=== PATIENT | female | born 1950 | race Caucasian/White ===

== ENCOUNTER 2017-01-15 08:44 | Inpatient (IN) | payer OTHER ==
[2016-12-23 11:27] VITALS: BMI 36.0
--- NOTE | 2016-12-23 12:13 | PAT Medication Instructions ---
Service Date Dec 23, 2016. Current Home Medication List Amitriptyline Hcl (Elavil), 25 MG PO HS Cephalexin Monohydrate (Keflex), 250 MG PO TID Cholecalciferol (Vitamin D3), 1 CAP PO BID Clonazepam (Klonopin), 1 MG PO TID Cyclobenzaprine Hcl (Flexeril), 10 MG PO TID Dextromethorphan-Guaifenesin (Mucinex Dm), 1 TAB PO Q12H Dicyclomine Hcl (Bentyl), 10 MG PO TID PRN for PRN Fenofibrate (Tricor), 48 MG PO QAM Fentanyl (Duragesic), 25 MCG TOP Q72H Ferrous Sulfate (Kp Ferrous Sulfate), 1 TAB PO BID Fluticasone Propionate (Flonase Nasal [place]), 2 SPRAYS PEDRO DAILY PRN for PRN Fluticasone Propionate (Flovent Hfa), 2 PUFFS INH BID PRN for PRN Glimepiride (Amaryl *), 2 MG PO BID Levothyroxine Sodium (Levothyroxine Sodium), 1 TAB PO QAM Magnesium Oxide (Mag-Ox), 400 MG PO QAM Midodrine Hcl (Midodrine Hcl), 10 MG BID Ondansetron Hcl (Zofran), 4 MG PO PRN PRN for Nausea Oxycodone/Acetaminophen 10MG/325MG (Percocet 10MG/325MG), 1 TAB PO Q8H PRN for Pain Paroxetine (Paxil), 30 MG PO QAM Potassium Ext Rel (Klor-Con), 20 MEQ PO QAM Pregabalin (Lyrica), 75 MG PO BID Ropinirole (Requip), 1 MG PO HS Temazepam (Restoril), 30 MG PO HS PRN for PRN [Combivent Inhaler], 2 PUFFS INH Q4 PRN Medication Instructions For Your Scheduled Surgery -Continue as directed: Fentanyl (Duragesic), 25 MCG TOP Q72H - Hold the following medications the night before surgery: Ropinirole (Requip), 1 MG PO HS - Hold the following medications the morning of surgery: Cholecalciferol (Vitamin D3), 1 CAP PO BID Cyclobenzaprine Hcl (Flexeril), 10 MG PO TID Fenofibrate (Tricor), 48 MG PO QAM Glimepiride (Amaryl *), 2 MG PO BID Ferrous Sulfate (Kp Ferrous Sulfate), 1 TAB PO BID Magnesium Oxide (Mag-Ox), 400 MG PO QAM Potassium Ext Rel (Klor-Con), 20 MEQ PO QAM - Take the following medications the morning of surgery with a sip of water: Clonazepam (Klonopin), 1 MG PO TID Dextromethorphan-Guaifenesin (Mucinex Dm), 1 TAB PO Q12H (if needed) Dicyclomine Hcl (Bentyl), 10 MG PO TID PRN (if needed) Fluticasone Propionate (Flonase Nasal [place]), 2 SPRAYS PEDRO DAILY PRN (if needed ) Fluticasone Propionate (Flovent Hfa), 2 PUFFS INH BID PRN Levothyroxine Sodium (Levothyroxine Sodium), 1 TAB PO QAM Midodrine Hcl (Midodrine Hcl), 10 MG BID Ondansetron Hcl (Zofran), 4 MG PO PRN PRN for Nausea (if needed) [Combivent Inhaler], 2 PUFFS INH Q4 PRN (if needed) Pregabalin (Lyrica), 75 MG PO BID Oxycodone/Acetaminophen 10MG/325MG (Percocet 10MG/325MG), 1 TAB PO Q8H PRN for Pain (if needed up to 4 hours before surgery) - Take the following medications as scheduled the night before surgery: Amitriptyline Hcl (Elavil), 25 MG PO HS Cholecalciferol (Vitamin D3), 1 CAP PO BID Clonazepam (Klonopin), 1 MG PO TID Cyclobenzaprine Hcl (Flexeril), 10 MG PO TID Dicyclomine Hcl (Bentyl), 10 MG PO TID PRN Glimepiride (Amaryl *), 2 MG PO BID Ferrous Sulfate (Kp Ferrous Sulfate), 1 TAB PO BID Midodrine Hcl (Midodrine Hcl), 10 MG BID Ondansetron Hcl (Zofran), 4 MG PO PRN PRN for Nausea (if needed) Paroxetine (Paxil), 30 MG PO QAM [Combivent Inhaler], 2 PUFFS INH Q4 PRN (if needed) Fluticasone Propionate (Flonase Nasal [place]), 2 SPRAYS PEDRO DAILY PRN (if needed ) Fluticasone Propionate (Flovent Hfa), 2 PUFFS INH BID PRN (if needed) Pregabalin (Lyrica), 75 MG PO BID Temazepam (Restoril), 30 MG PO HS PRN Oxycodone/Acetaminophen 10MG/325MG (Percocet 10MG/325MG), 1 TAB PO Q8H PRN for Pain If you have any questions please call us at [phone] or [phone] or [phone]
[2016-12-23 12:45] LABS: BASO % 0.6 %; BASO ABS # 0.03 K/uL (0-0.2); COMPLETE YES; EOS % 6.7 %; HEMATOCRIT 39.5 % (37-47); IG% 0.8 %; LYMPH % 16.3 %; LYMPH ABS # 0.85 K/uL (1.2-3.4); MEAN CORPUSCULAR HEMOGLOBIN 31.4 pg (25-34); MEAN CORPUSCULAR HGB CONC 33.4 g/dl (32-36); MEAN PLATELET VOLUME 9.6 fL (7.4-10.4); MONO % 12.4 %; NEUT % 63.2 %; PLATELET COUNT 228 K/uL (130-400); WHITE BLOOD COUNT 5.23 K/uL (4.8-10.8)
[2016-12-23 12:52] LABS: URINE APPEARANCE CLEAR (CLEAR); URINE BILIRUBIN NEG (NEG); URINE COLOR YELLOW; URINE EPITHELIAL CELL AUTO >30 /lpf (0-5); URINE NITRITE NEG (NEG); URINE PH 5.5 (4.5-7.5); URINE SPECIFIC GRAVITY 1.021 (1.000-1.030); UROBILINOGEN NEG (NEG)
[2016-12-23 12:59] LABS: MANUAL MICROSCOPIC REQUIRED? NO; REVIEW REQ? NO
--- NOTE | 2016-12-23 13:01 | DIAGNOSTIC IMAGING REPORT ---
CHEST PREADMISSION(PA/LAT) CLINICAL HISTORY: Preoperative evaluation. COMPARISON STUDY: Chest radiograph July 22, 2012. FINDINGS: Incidental note is made of cholecystectomy clips. Patient is rotated. No pneumothorax or pleural effusion is present. There is no evidence of pulmonary edema. Appearance of the chest is unchanged. Cardiomediastinal silhouette is normal. IMPRESSION: No acute cardiopulmonary findings. Electronically signed by: Usama Allen M.D. 12/23/2016 1:00 PM Dictated Date/Time: 12/23/2016 12:57 PM
[2016-12-23 14:25] LABS: BUN/CREATININE RATIO 22.2 (10-20); CALCIUM 9.3 mg/dl (8.5-10.1); CREATININE 0.77 mg/dl (0.60-1.20); POTASSIUM 4.4 mmol/L (3.5-5.1)
--- NOTE | 2017-01-14 22:19 | History and Physical ---
History & Physical Date Jan 14, 2017. Chief Complaint Right foot pain History of Present Illness The patient is a 66 year old female with complaints of right foot pain and deformity for multiple years. She has been treated conservatively for a right foot bunion and bunionette deformity as well as a hammertoe. She failed all conservative management and is now being set up for surgical management. Past Medical/Surgical History Medical Problems: (1) Anxiety (2) Chronic obstructive lung disease (3) History of - hypothyroidism (4) Hyperlipidemia (5) Mitral valve prolapse (6) Obesity Allergies Coded Allergies: Topiramate (Verified Allergy, Intermediate, UNKNOWN, 12/23/16) PER MD ORDER Aspirin (Verified Allergy, Unknown, SWELLING LIPS GI UPSET, 12/23/16) Clindamycin (Unverified Allergy, Unknown, HIVES FAST HEART RATE, 12/23/16) Gabapentin (Verified Allergy, Unknown, DISORIENTED, 12/23/16) Haloperidol (Verified Allergy, Unknown, "I GO CRAZY", 12/23/16) Iodinated Diagnostic Agents (Unverified Allergy, Unknown, RASH EVERYWHERE , 12/23/16) Lisinopril (Unverified Allergy, Unknown, HYPOTENSION, 12/23/16) Morphine (Unverified Allergy, Unknown, HYPERACTIVITY, 12/23/16) Nitrofurantoin (Verified Allergy, Unknown, NAUSEA AND VOMITING, 12/23/16) Olanzapine (Verified Allergy, Unknown, HIVES,BECAME DIABETIC FROM IT, 12/23) Penicillins (Verified Allergy, Unknown, has taken Keflex, 09/14/13) Pioglitazone (Unverified Allergy, Unknown, HIVES, 12/23/16) Sertraline (Verified Allergy, Unknown, LIPS SWELLING HIVES,SUICIDAL THOUGHTS, 12/23/16) Simvastatin (Verified Allergy, Unknown, SWELLING, 12/23/16) Sulfa Drugs (Verified Allergy, Unknown, SWELLING, 12/23/16) Tetracycline (Verified Allergy, Unknown, HIVES LIPS SWELLING, 12/23/16) Tiotropium (Unverified Allergy, Unknown, CAN'T USE SPIRIVA DUE TO GLAUCOMA , 12/23/16) Methylprednisolone (Verified Adverse Reaction, Mild, "ELEVATED BSG", 12/23) Home Medications Scheduled Amitriptyline Hcl (Elavil), 25 MG PO HS Cephalexin Monohydrate (Keflex), 250 MG PO TID Cholecalciferol (Vitamin D3), 1 CAP PO BID Clonazepam (Klonopin), 1 MG PO TID Cyclobenzaprine Hcl (Flexeril), 10 MG PO TID Dextromethorphan-Guaifenesin (Mucinex Dm), 1 TAB PO Q12H Fenofibrate (Tricor), 48 MG PO QAM Fentanyl (Duragesic), 25 MCG TOP Q72H Ferrous Sulfate (Kp Ferrous Sulfate), 1 TAB PO BID Glimepiride (Amaryl *), 2 MG PO BID Levothyroxine Sodium (Levothyroxine Sodium), 1 TAB PO QAM Magnesium Oxide (Mag-Ox), 400 MG PO QAM Midodrine Hcl (Midodrine Hcl), 10 MG BID Paroxetine (Paxil), 30 MG PO QAM Potassium Ext Rel (Klor-Con), 20 MEQ PO QAM Pregabalin (Lyrica), 75 MG PO BID Ropinirole (Requip), 1 MG PO HS Scheduled PRN Dicyclomine Hcl (Bentyl), 10 MG PO TID PRN for PRN Fluticasone Propionate (Flonase Nasal [place]), 2 SPRAYS PEDRO DAILY PRN for PRN Fluticasone Propionate (Flovent Hfa), 2 PUFFS INH BID PRN for PRN Ondansetron Hcl (Zofran), 4 MG PO PRN PRN for Nausea Oxycodone/Acetaminophen 10MG/325MG (Percocet 10MG/325MG), 1 TAB PO Q8H PRN for Pain Temazepam (Restoril), 30 MG PO HS PRN for PRN [Combivent Inhaler], 2 PUFFS INH Q4 PRN Physical Examination Skin: warm/dry, no rash Eyes: normal inspection Head: normocephalic, atraumatic Neck: supple, no adenopathy, trachea midline Respiratory/Chest: lungs clear, normal breath sounds, no respiratory distress Cardiovascular: regular rate, rhythm, no murmur Abdomen / GI: normal bowel sounds, non tender Extremities: + pertinent finding (Right foot: hallux valgus deformity with hallux interphalangeus. Bunionette deformity. 2nd hammertoe. Tender to palpation at the 1st MTP and 2nd metatarsal head. Also tender at the 5th MTP joint. ) Neurologic/Psych: no motor/sensory deficits, alert, oriented x 3 Diagnosis Right foot hallux valgus Right foot hallux interphalangeus Right foot bunionette Right foot 2nd hammertoe Right foot metatarsalgia of the 2nd and 3rd metatarsals Plan of Treatment Recommend a right foot Devlin hallux valgus correction with distal soft tissue procedure, Jef osteotomy of the great toe, 2nd and 3rd Christofer osteotomies, 2nd DuVries arthroplasy, and 5th Chevron bunionette correction. All potential risks, benefits, complications, alternatives, and rehab have been discussed and the patient wishes to proceed as indicated. She will be scheduled for 01.15.17.
[~2017-01-15] VITALS: Ht 157.5 cm; Wt 90.3 kg
[2017-01-15] VITALS (7 sets, daily range): BP systolic 109–141; BP diastolic 69–72; PULSE 85–93; TEMP 36.4–36.6; O2SAT 93–98; Ht 157.5 cm; Wt 90.3 kg
[~2017-01-15 08:44] MED LIST: AMR2 PO; AMT50 PO; CHOL2000 PO; CLINDAMYCIN 600 MG/54 ML D5W IV SCH; CLON1TAB3 PO; COMBIVENT INHALER INH; CYCL10TA6 PO; DEXT30TA7 PO; DICY10CA55 PO; FENO48TA9 PO; FENT25DI10 TOP; FERR1TAB13 PO; FLNIN NAE; FLVHFA44 INH; KFL/250 PO; LACTATED RINGER'S 1000ML 1,000 ML IV SCH; LEVO25TA5 PO; LYR50 PO; MAGN400T6 PO; MIDO10TA; ONDA4TAB46 PO; OXYC-106 PO; PARO1TAB27 PO; POTA-327 PO; ROPI1TAB PO; ROPIVACAINE 0.5% 5 MG/ML 30 ML VIAL ONE; TEMA30CA4 PO; [UNRECOGNIZED DRUG - REMARK] SCH
--- NOTE | 2017-01-15 10:02 | History & Physical Bridge Note ---
H&P Re-Evaluation Bridge Note: I have examined the patient, reviewed the History & Physical and in the interval since the performance of the History & Physical I have noted the following changes of clinical significance: No changes noted
[2017-01-15] MEDS ORDERED: MIDAZOLAM HCL 1 MG/ML 2ML VIAL ONE ×2 (11:04→12:04)
[2017-01-15] MEDS ORDERED: FENTANYL CITRATE INJ 50 MCG/1 ML 2 ML VIAL ONE ×2 (11:05→12:30)
[2017-01-15] MEDS ORDERED: CEFAZOLIN IV 2,000 MG/60 ML D5W IV ONE (11:59)
[2017-01-15] MEDS ORDERED: NURSING VERBAL MED ORDER ONE (12:00)
[2017-01-15] MEDS ORDERED: BACITRACIN 50000 UNIT VIAL ONE (12:07)
[2017-01-15] MEDS ORDERED: SOD PHOSPHATE/SOD BIPHOSPHATE ENEMA 132 ML BTL PR PRN (12:45)
[2017-01-15] MEDS ORDERED: ALUMINUM/MAGNESIUM/SIMETH (MAALOX MAX) 30 ML UDC PO PRN (12:45)
[2017-01-15] MEDS ORDERED: ZOLPIDEM TARTRATE 5 MG TAB PO PRN (12:45)
[2017-01-15] MEDS ORDERED: BISACODYL 10 MG SUPP PR PRN (12:45)
[2017-01-15] MEDS ORDERED: FLUTICASONE PROP HFA INH 44 MCG INHALER INH PRN (12:45)
[2017-01-15] MEDS ORDERED: IPRATROPIUM BROMIDE/ALBUTEROL respimat INH INH PRN (12:45)
[2017-01-15] MEDS ORDERED: FLUTICASONE PROPIONATE NA SPR 16 GM BTL NAE PRN (12:45)
[2017-01-15] MEDS ORDERED: NO NSAIDS SCH (12:45)
[2017-01-15] MEDS ORDERED: HYDROmorphone INJ 2 MG/ML SYR/VIAL ONE (12:48)
[2017-01-15] MEDS ORDERED: ONDANSETRON INJ 2 MG/ML 2 ML VIAL IV PRN (14:15)
[2017-01-15] MEDS ORDERED: IV FLUIDS COMPLETED PRN (14:15)
[2017-01-15] MEDS ORDERED: HYDROmorphone INJ 2 MG/ML SYR/VIAL IV PRN (14:15)
[2017-01-15] MEDS ORDERED: EpHEDrine SULFATE INJ 50 MG/ML AMP IV PRN (14:15)
[2017-01-15] MEDS ORDERED: ATROPINE SULFATE 0.1 MG/ML 5ML SYR IV PRN (14:15)
[2017-01-15] MEDS ORDERED: PHENYLEPHRINE 100MCG/ML 5ML SYR IV PRN (14:15)
[2017-01-15] MEDS ORDERED: LIDOCAINE HCL 2% 2 ML VIAL (20MG/ML) ONE (14:28)
[2017-01-15] MEDS ORDERED: DEXAMETHASONE SOD INJ 4 MG/ML VIAL ONE (14:28)
[2017-01-15] MEDS ORDERED: ONDANSETRON INJ 2 MG/ML 2 ML VIAL ONE (14:28)
[2017-01-15] MEDS ORDERED: PROPOFOL IV EMULSION 10 MG/ML 20 ML VIAL IV ONE (14:28)
--- NOTE | 2017-01-15 15:07 | [facility] Post Operative Brief Note ---
Immediate Operative Summary Operative Date Jan 15, 2017. Pre-Operative Diagnosis Right foot hallux valgus, Right foot hallux interphalangeus, Right foot bunionette, Right foot 2nd hammertoe, Right foot metatarsalgia of the 2nd and 3rd metatarsals Post-Operative Diagnosis Right foot hallux valgus, Right foot hallux interphalangeus, Right foot bunionette, Right foot 2nd hammertoe, Right foot metatarsalgia of the 2nd and 3rd metatarsals, Contracture plantar plate 2nd toe Procedure(s) Performed Right Foot Devlin Hallux Valgus Correction; Kaycee Osteotomy; 2nd Christofer and 3rd Christofer Osteotomy; 2nd DuVries Arthroplasty; 5th Chevron Bunionette Correction; 2nd toe Plantar Plate Release Surgeon Dr. Roberson Receiving Operator Surgeon(s) Zac Molina PA-C Estimated Blood Loss 5cc Findings See Dict Specimens NONE per surgeon Drains None Anesthesia GLMA w/ popliteal block Complication(s) None Disposition Recovery Room / PACU
--- NOTE | 2017-01-15 15:51 | DIAGNOSTIC IMAGING REPORT ---
INTRAOPERATIVE RIGHT FOOT 2 VIEWS CLINICAL HISTORY: Right foot hallux valgus deformity COMPARISON STUDY: No previous studies for comparison. FINDINGS: 58 seconds of fluoroscopic time was utilized. 2 intraoperative fluoroscopic spot images are provided for interpretation. There is an apparent osteotomy involving the proximal talus the great toe traversed by a single screw. There is an apparent osteotomy at the base of the first metatarsal traversed by 2 screws. There are single screws involving the necks of the fifth third and second metatarsals. There is orthopedic wire traversing the proximal and distal interphalangeal joints of the second toe as well as the second metatarsal phalangeal joint. IMPRESSION: Intraoperative fluoroscopic spot images demonstrating postsurgical changes as described above Electronically signed by: Marcelino Tang M.D. 01/15/2017 3:50 PM Dictated Date/Time: 01/15/2017 3:48 PM
--- NOTE | 2017-01-15 15:53 | DIAGNOSTIC IMAGING REPORT ---
R FOOT MIN 3 VIEWS ROUTINE CLINICAL HISTORY: post op COMPARISON: None. DISCUSSION: Postsurgical changes are evident. There is evidence of a first metatarsal bunionectomy. There is evidence for an osteotomy at the base the first metatarsal which is traversed by 2 screws. It is conceivable that the screws extend into the medial cuneiform. There is an osteotomy involving the proximal phalanx of the great toe which is traversed by a single screw. There is orthopedic wire traversing the second metatarsal phalangeal joint and enter pharyngeal joints of the second toe. There are single screws at the level of the second third and fifth metatarsal heads. IMPRESSION: Postsurgical changes as described above. Electronically signed by: Marcelino Tang M.D. 01/15/2017 3:51 PM Dictated Date/Time: 01/15/2017 3:50 PM
[2017-01-15] MEDS: HYDROmorphone INJ 1 MG/ML SYR IV PRN (15:57)
--- NOTE | 2017-01-15 16:10 | OPERATIVE REPORT ---
DATE OF OPERATION: 01/15/2017 PREOPERATIVE DIAGNOSES: 1. Right foot hallux valgus deformity. 2. Hallux interphalangeus. 3. Second and third metatarsalgia. 4. Second hammertoe deformity. 5. Fifth bunionette deformity. POSTOPERATIVE DIAGNOSIS: Same as above in addition to a second plantar plate contracture of the PIP joint. PROCEDURES: 1. Right Devlin hallux valgus correction with distal soft tissue procedure. 2. Right Jef osteotomy of the great toe. 3. Second Christofer osteotomy. 4. Third Christofer osteotomy. 5. Second DuVries arthroplasty. 6. Fifth Chevron bunionette correction. 7. Second plantar plate release. SURGEON: Dr. Roberson. UNIFORMER: Reynaldo Molina PA-C who was present for patient positioning, sterile prep and drape, management of retractors and instruments. He was present through the critical portions of the case including wound closure, application of sterile dressing and transport of the patient to recovery. ANESTHESIA: General LMA with popliteal block. SPECIMENS: None. DRAINS: None. COMPLICATIONS: None. BLOOD LOSS: 5 mL. PERTINENT HISTORY: This is a 66-year-old female with chronic progressive and worsening right foot pain and deformity. She attempted and failed conservative measures including anti-inflammatories, use of an assistive device, bracing, use of shoe insert, shoe change and modification, physical therapy, and use of toe spacers, local injections. She had radiographic evidence of severe hallux valgus deformity with severe hallux interphalangeus deformity and severe bunionette deformity. The patient was then scheduled for surgery as indicated. All potential risks, benefits, complications, alternatives, rehab, potential for incomplete relief of symptoms, need for further surgery, DVT, PE, , persistent pain, swelling, scarring, weakness, neurovascular injury, wound complications, hardware failure, nonunion, malunion was discussed with the patient. The patient decided to proceed with the procedure as indicated. OPERATION AND FINDINGS: PROCEDURE: After popliteal block was administered in the preop holding area, the patient was taken to the operative suite, placed supine on the operating room table. After review of the consent and identification of proper operative site the patient was then anesthetized and LMA was placed. A tourniquet was placed high on the right thigh over cast padding; however, was not used during the case. Next, the right lower extremity was then sterilely prepped and draped in usual fashion, elevated and exsanguinated with Esmarch bandage and Esmarch tourniquet was applied over sterile towel at the level of the ankle. First, a 15 blade scalpel incision was made transversely across the second toe PIP joint. This incision was then deepened through subcutaneous tissue. Meticulous hemostasis was achieved with electrocautery. Full thickness skin flaps were developed. Then a full thickness incision was made through the extensor tendon and the joint capsule and a small ellipse of tissue was then excised dorsally. This was then followed by incision of the medial and lateral collateral ligaments of the PIP joint of the second toe. Next, a bone biting rongeur was then used to resect the distal aspect of the proximal phalanx, second toe. After attempting to correct position of the toes there was noted to be a contracture of the plantar plate of the second PIP joint. At this point, this PIP joint contracture was then released with a 15 blade scalpel first and then the tissue was then carefully dissected with a tenotomy scissor until completely released. This then allowed supple realignment of the second toe PIP joint. Next, a 15 blade scalpel was then used to make an incision between the second and third metatarsals. This incision was then deepened through subcutaneous tissue. Meticulous hemostasis was achieved with electrocautery. The second extensor tendon was identified and retracted, and protected followed by dorsal incision in the second metatarsophalangeal joint. This capsular tissue was then elevated both medially and laterally exposing the metatarsal. Next, an oblique osteotomy was made with a sagittal saw. A small parallel cut was made and then the wafer of bone was then resected. The head was then shifted proximally and the dorsal portion of the overhanging osteotomy was then resected with a rongeur. This was irrigated with sterile normal saline and the osteotomy was then stabilized with a 1.5 mm modular handset screw placed under live fluoroscopic assistance. Next, the third extensor tendon was then identified, freed, retracted, and protected with a tenotomy scissor followed by placement of a Weitlaner retractor. Dorsal incision was made over the third metatarsophalangeal joint, capsular tissue was elevated both medially and laterally and the collateral ligaments were then sacrificed with a 15 blade scalpel. This was then followed by creation of an oblique osteotomy of the sagittal saw. The metatarsal head was then shifted proximally and elevated slightly with a secondary cut at the same osteotomy level with the sagittal saw. Next, the dorsal portion of the osteotomy was then resected with a rongeur and the osteotomy was then stabilized with a single 1.5 mm modular handset screw. Next, a 15 blade scalpel was used to make an incision over the medial eminence of the first MTP. This incision was deepened through subcutaneous tissue. Meticulous hemostasis was achieved with electrocautery. The dorsal and plantar sensory cutaneous nerves were identified, freed, retracted, and protected. Next, an ellipse of capsular tissue was then excised with 11 blade scalpel and then an L capsulotomy was made elevating tissue from the medial eminence of the first metatarsal. Next, the medial eminence of the first metatarsal was then resected using a sagittal saw in line with the sagittal sulcus. Next, the 15 blade scalpel was then used to make an incision between the first and second metatarsal heads on the dorsal portion of the foot with a 15 blade scalpel. This incision was then deepened through the subcutaneous tissue and also through Lyndsey's fascia. Next, blunt dissection was performed down to the abductor tendon which was then sharply incised from the lateral aspect of the sesamoid. Next, the sesamoid was then freed with an incision made with a #15 blade scalpel between the sesamoid and the first metatarsal. Next, the lateral capsule was then pie crusted with a 15 blade scalpel, releasing the valgus contracture and a varus force was applied to the first metatarsophalangeal joint to release all resultant contractures. Next, the abductor tendon was then reattached to the capsular tissue of the first metatarsal head with three 2-0 Vicryl sutures. Next, the 15 blade scalpel was used to make an incision over the dorsum of the first metatarsal base. This incision was then deepened through subcutaneous tissue. Meticulous hemostasis was achieved with electrocautery. Full thickness skin flaps were developed. The extensor hallucis longus was then retracted laterally and then a crescentic cut was made in the proximal base of the first metatarsal. The metatarsal metatarsus Primus varus was then reduced and then stabilized with two 4.0 cannulated screws placed under live fluoroscopic assistance. Next, the great toe was held in corrected alignment with regard to varus, valgus and rotation and the medial capsule of the first metatarsophalangeal joint was then closed using interrupted [id number] 2-0 Vicryl sutures. Next, a 15 blade scalpel was then used to make an incision over the lateral aspect of the fifth metatarsal head. This incision was then deepened through subcutaneous tissue. Meticulous hemostasis was achieved with electrocautery. Dorsal and plantar cutaneous nerves were identified, freed, retracted, and protected. An 11 blade scalpel was then used to excise a small ellipse of tissue laterally followed by creation of a L-capsulotomy which was then elevated from the lateral aspect of the fifth metatarsal head. Next, the lateral eminence of the fifth metatarsal head was then resected in line with the sagittal sulcus followed by creation of a Chevron osteotomy with the small sagittal saw. The capital fragment of the fifth metatarsal head was then shifted medially followed by stabilization of the osteotomy with a 2.0 mm modular handset screw. Next, the overhang portion of the osteotomy was then resected with a sagittal saw and all skin incisions were then copiously irrigated with sterile normal saline. This was then followed by closure of the capsule of the fifth metatarsophalangeal joint with the fifth toe held in corrected alignment with regard to valgus, varus and rotation. The capsule was closed using interrupted 2-0 Vicryl sutures. Next, all skin incisions were closed using 4-0 nylon sutures interrupted. Next, a sterile compressive forefoot dressing was applied overwrapped with Coban. The tourniquet was released, the patient was awakened and taken to recovery in stable condition. I attest to the content of the Intraoperative Record and any orders documented therein. Any exception s are noted below.
--- NOTE | 2017-01-15 16:13 | Anesthesiology Progress Note ---
Anesthesia Post Op Note Date & Time Jan 15, 2017 at 16:12 Vital Signs Pain Intensity: 4 Vital Signs Past 12 Hours Date Time Temp Pulse Resp B/P (MAP) Pulse Ox O2 Delivery O2 Flow Rate FiO2 01/15/17 16:05 97 18 123/63 96 Nasal Cannula 4 01/15/17 15:55 100 19 130/67 95 Nasal Cannula 4 01/15/17 15:45 105 13 124/66 96 Oxymask 15 01/15/17 15:35 104 10 112/70 95 Oxymask 15 01/15/17 15:25 108 14 108/73 92 Oxymask 15 01/15/17 15:17 36.7 108 12 115/77 92 Oxymask 10 01/15/17 09:47 141/71 95 Room Air Notes Mental Status: alert / awake / arousable, participated in evaluation Pt Amnestic to Procedure: Yes Nausea / Vomiting: adequately controlled Pain: adequately controlled Airway Patency, RR, SpO2: stable & adequate BP & HR: stable & adequate Hydration State: stable & adequate Anesthetic Complications: no major complications apparent
[2017-01-15] MEDS: DICYCLOMINE HCL 10 MG CAP PO SCH ×2 (17:39→20:57)
[2017-01-15] MEDS: CYCLOBENZAPRINE HCL 10 MG TAB PO SCH ×2 (17:39→20:58)
[2017-01-15] MEDS: CLONAZEPAM 1 MG TAB PO SCH ×2 (17:40→21:05)
[2017-01-15] MEDS ORDERED: FENTANYL 25 MCG/HR TDSY TD SCH (17:45)
[2017-01-15] MEDS ORDERED: GLIMEPIRIDE 2 MG TAB PO SCH (17:45)
[2017-01-15] MEDS: POTASSIUM CHLORIDE INJ 10 MEQ in SODIUM CHLORIDE 0.9% 1000ML 1,000 ML IV SCH (18:29)
[2017-01-15] MEDS: FERROUS SULFATE 325 MG TAB PO SCH (18:30)
[2017-01-15] MEDS: ONDANSETRON INJ 2 MG/ML 2 ML VIAL IV PRN (18:46)
[2017-01-15] MEDS: OXYCODONE/ACETAMINOPHEN 10/325MG TAB PO PRN (18:46)
[2017-01-15] MEDS ORDERED: GLUCOSE 40% GEL 15 GM TUBE PO PRN (19:00)
[2017-01-15] MEDS ORDERED: GLUCAGON FOR INJ 1 MG VIAL SQ PRN (19:00)
[2017-01-15] MEDS ORDERED: DEXTROSE 50% 50 ML SYR IV PRN (19:00)
[2017-01-15] MEDS ORDERED: GLUCOSE 10 TABS/TUBE PO PRN (19:00)
[2017-01-15] MEDS ORDERED: CLR10 PO (19:19)
[2017-01-15] MEDS ORDERED: DURAGESIC EXT (19:26)
[2017-01-15] MEDS: FENTANYL PATCH REMOVE & WASTE SCH (19:52)
[2017-01-15] MEDS: FENTANYL 12 MCG/HR TDSY TD SCH (19:54)
[2017-01-15] MEDS: CEFAZOLIN IV 2,000 MG in DEXTROSE 5% 50ML 50 ML IV SCH (19:56)
--- NOTE | 2017-01-15 20:01 | Medical Consult ---
Consultation Date of Consultation: Jan 15, 2017. Attending Physician: Prince Roberson D.O. Reason for Consultation: postop medical management History of Present Illness Patient seen and examined after undergoing right foot surgery today by Dr. Roberson. Patient reports postop pain rated 8/10. Sensory block has worn off. Received 2 Percocet 15 minutes prior to my exam. She reports nausea after eating dinner. No vomiting. Medicated with Zofran 15 minutes prior to my exam. She reports chronic dizziness upon standing but no dizziness currently. She is on midodrine for orthostatic hypotension. Has chronic dry cough. At home she uses Fentanyl Patch 12.5 mcg/hour- she states this is for migraines, as well as Percocet for fibromyalgia. Follows with [facility] pharmacist for pain management. Pt states her dose is supposed to be increased Fentanyl 25 mcg/ hour , but she did not receive the Rx yet. Denies fever, chills, chest pain, SOB, wheezing, abdominal pain, recent bowel or bladder changes. Denies hx of VTE. Past Medical/Surgical History Medical Problems: (1) Anxiety Status: Chronic (2) Asthma Status: Chronic (3) Chronic obstructive lung disease Status: Chronic (4) Depression Status: Chronic (5) Diabetic neuropathy Status: Chronic (6) DM type 2 (diabetes mellitus, type 2) Status: Chronic (7) Fibromyalgia Status: Chronic (8) RAUL (generalized anxiety disorder) Status: Chronic (9) History of - hypothyroidism Status: Chronic (10) Hx of pneumothorax Status: Chronic (11) Hyperlipidemia Status: Chronic (12) Migraines Status: Chronic (13) Mitral valve prolapse Status: Chronic (14) Obesity Status: Chronic (15) Orthostatic hypotension Status: Chronic (16) RLS (restless legs syndrome) Status: Chronic Surgical Problems: (1) H/O inguinal hernia repair Status: Chronic (2) H/O oophorectomy Status: Chronic (3) History of hysterectomy Status: Chronic (4) S/P cholecystectomy Status: Chronic (5) S/P thoracentesis Status: Chronic (6) S/P tonsillectomy Status: Chronic (7) S/P total knee arthroplasty Permanent Comment: right Status: Chronic Family History FH: CAD (coronary artery disease) FATHER MOTHER Social History Smoking Status: Never Smoker Alcohol Use: none Marital Status: single, (states she had a stressful divorce and is recently estranged from her daughter. has a son who is supportive.) Housing Status: lives alone Allergies Coded Allergies: Topiramate (Verified Allergy, Intermediate, UNKNOWN, 12/23/16) PER MD ORDER Aspirin (Verified Allergy, Unknown, SWELLING LIPS GI UPSET, 12/23/16) Clindamycin (Verified Allergy, Unknown, HIVES FAST HEART RATE, 01/15/17) Gabapentin (Verified Allergy, Unknown, DISORIENTED, 12/23/16) Haloperidol (Verified Allergy, Unknown, "I GO CRAZY", 12/23/16) Iodinated Diagnostic Agents (Verified Allergy, Unknown, RASH EVERYWHERE, ) Lisinopril (Verified Allergy, Unknown, HYPOTENSION, 01/15/17) Morphine (Verified Allergy, Unknown, HYPERACTIVITY, 01/15/17) Nitrofurantoin (Verified Allergy, Unknown, NAUSEA AND VOMITING, 12/23/16) Olanzapine (Verified Allergy, Unknown, HIVES,BECAME DIABETIC FROM IT, 12/23) Penicillins (Verified Allergy, Unknown, has taken Keflex, 01/15/17) Pt reports has taken and is not allergic but states her doctor wants it left on her list Pioglitazone (Verified Allergy, Unknown, HIVES, 01/15/17) Sertraline (Verified Allergy, Unknown, LIPS SWELLING HIVES,SUICIDAL THOUGHTS, 12/23/16) Simvastatin (Verified Allergy, Unknown, SWELLING, 12/23/16) Sulfa Drugs (Verified Allergy, Unknown, SWELLING, 12/23/16) Tetracycline (Verified Allergy, Unknown, HIVES LIPS SWELLING, 12/23/16) Tiotropium (Verified Allergy, Unknown, CAN'T USE SPIRIVA DUE TO GLAUCOMA, 01/15/17) Methylprednisolone (Verified Adverse Reaction, Mild, "ELEVATED BSG", 12/23) Home Medications Active Reported [duragesic 12.5 mcg] 1 Patch EXT Q72H Claritin (Loratadine) 10 Mg Tab 10 Mg PO DAILY Elavil (Amitriptyline HCl) 50 Mg Tab 25 Mg PO HS Flexeril (Cyclobenzaprine Hcl) 10 Mg Tab 10 Mg PO TID Flovent Hfa (Fluticasone Propionate) 120 Puffs/5280 Mcg Aero 2 Puffs INH BID PRN 30 Days Vitamin D3 (Cholecalciferol) 2,000 Unit Cap 1 Cap PO BID 90 Days Levothyroxine Sodium 25 Mcg Tab 1 Tab PO QAM 90 Days Zofran (Ondansetron HCl) 4 Mg Tab 4 Mg PO PRN PRN Kp Ferrous Sulfate (Ferrous Sulfate) 325 Mg Tab 1 Tab PO BID 30 Days Tricor (Fenofibrate) 48 Mg Tab 48 Mg PO QAM Percocet 10MG/325MG (Oxycodone/Acetaminophen) Tab 1 Tab PO Q8H PRN Mag-Ox (Magnesium Oxide) 400 Mg Tab 400 Mg PO QAM Klor-Con (Potassium Chloride) 10 Meq Tabcr 10 Meq PO BID Midodrine Hcl 10 Mg Tab 10 Mg BID Bentyl (Dicyclomine Hcl) 10 Mg Cap 10 Mg PO TID Lyrica (Pregabalin) 50 Mg Cap 75 Mg PO BID Flonase Nasal [place] (Fluticasone Propionate) 120 Sprays/6000 Mcg Inha 2 Sprays PEDRO DAILY PRN Restoril (Temazepam) 30 Mg Cap 30 Mg PO HS PRN Requip (Ropinirole HCl) 1 Mg Tab 1 Mg PO HS Klonopin (Clonazepam) 1 Mg Tab 1 Mg PO TID Amaryl * (Glimepiride) 2 Mg Tab 2 Mg PO BID Paxil (Paroxetine HCl) 20 Mg Tab 30 Mg PO QAM [Combivent Inhaler] 2 Puffs INH QID PRN Q 4HRS PRN Current Inpatient Medications Current Inpatient Medications Medications (Trade) Dose Ordered Sig/Jennifer Route Start Time Stop Time Status Last Admin Dose Admin Lactated Ringer's 1,000 ml @ 15 mls/hr Q24H IV 01/15/17 06:00 01/16/17 05:59 01/15/17 10:12 15 MLS/HR Amitriptyline HCl (Elavil Tab) 25 mg HS PO 01/15/17 21:00 02/14/17 20:59 Clonazepam (Klonopin Tab) 1 mg TID PO 01/15/17 14:00 02/14/17 13:59 Cyclobenzaprine HCl (Flexeril Tab) 10 mg TID PO 01/15/17 14:00 02/14/17 13:59 Dicyclomine HCl (Bentyl Cap) 10 mg TID PO 01/15/17 14:00 02/14/17 13:59 Fenofibrate (Tricor Tab) 48 mg QAM PO 01/16/17 09:00 02/15/17 08:59 Fentanyl (Duragesic Patch) 25 mcg Q3D@1745 TD 01/15/17 17:45 01/29/17 17:44 01/15/17 18:28 25 MCG Fluticasone Propionate (Flonase Nasal [place]) 2 sprays DAILY PRN PEDRO 01/15/17 12:45 02/14/17 12:44 Fluticasone Propionate (Flovent Hfa 44MCG Inhaler) 2 puffs BID PRN INH 01/15/17 12:45 02/14/17 12:44 Levothyroxine Sodium (Synthroid Tab) 25 mcg DAILYBB PO 01/16/17 06:00 02/15/17 05:59 Magnesium Oxide (Mag-Ox Tab) 400 mg QAM PO 01/16/17 09:00 02/15/17 08:59 Midodrine (Proamatine Tab) 10 mg BID PO 01/15/17 21:00 02/14/17 20:59 Ondansetron HCl (Zofran Tab) 4 mg UD PRN PO 01/15/17 12:45 02/14/17 12:44 Paroxetine HCl (pAXil) 30 mg QAM PO 01/16/17 09:00 02/15/17 08:59 Potassium Chloride (Klor-Con Tab) 20 meq QAM PO 01/16/17 09:00 02/15/17 08:59 Pregabalin (Lyrica Cap) 75 mg BID PO 01/15/17 21:00 02/14/17 20:59 Ropinirole HCl (Requip Tab) 1 mg HS PO 01/15/17 21:00 02/14/17 20:59 Temazepam (Restoril Cap) 30 mg HS PRN PO 01/15/17 12:45 02/14/17 12:44 Cholecalciferol (Vitamin D Tab) 2,000 inter.unit BID PO 01/15/17 21:00 02/14/17 20:59 Ferrous Sulfate (Feosol Tab) 325 mg BIDM PO 01/15/17 17:45 02/14/17 17:44 01/15/17 18:30 325 MG Albuterol/ Ipratropium (Combivent Respimat Inh) 1 puffs Q4 PRN INH 01/15/17 12:45 02/14/17 12:44 Potassium Chloride 10 meq/ Sodium Chloride 1,005 ml @ 100 mls/hr Q10H3M IV 01/15/17 18:00 02/14/17 17:59 01/15/17 18:29 100 MLS/HR Miscellaneous Medication (No Nsaids) 1 ea UD N/A 01/15/17 12:45 02/14/17 12:44 Magnesium Hydroxide (Milk Of Magnesia Susp) 30 ml Q6H PRN PO 01/15/17 12:45 02/14/17 12:44 Bisacodyl (Dulcolax Supp) 10 mg DAILY PRN MS 01/15/17 12:45 02/14/17 12:44 Sodium Biphosphate/ Sodium Phosphate (Fleet Enema) 132 ml DAILY PRN MS 01/15/17 12:45 02/14/17 12:44 Senna (Senokot Tab) 17.2 mg HS PO 01/15/17 21:00 02/14/17 20:59 Docusate Sodium (coLACE CAP) 100 mg BID PO 01/15/17 21:00 02/14/17 20:59 Diphenhydramine HCl (Benadryl Cap) 25 mg Q8H PRN PO 01/15/17 12:45 02/14/17 12:44 Al Hydrox/Mg Hydrox/Simethicone (Maalox Max Susp) 15 ml Q4H PRN PO 01/15/17 12:45 02/14/17 12:44 Zolpidem Tartrate (Ambien Tab) 5 mg HSZ PRN PO 01/15/17 12:45 02/14/17 12:44 Multivitamins (Multivitamin Tab) 1 tab QAM PO 01/16/17 09:00 02/15/17 08:59 Ondansetron HCl (Zofran Inj) 4 mg Q6H PRN IV 01/15/17 12:45 02/14/17 12:44 01/15/17 18:46 4 MG Cefazolin Sodium 2000 mg/Dextrose 60 ml @ 100 mls/hr Q8H IV 01/15/17 20:00 01/16/17 04:35 Oxycodone/ Acetaminophen (Percocet 10-325MG Tab) 1 tab for pain rated 1-5 2 t... Q4H PRN PO 01/15/17 12:45 01/29/17 12:44 01/15/17 18:46 2 TAB Hydromorphone HCl (Dilaudid Inj) 1 mg Q1HWA PRN IV 01/15/17 12:45 01/29/17 12:44 01/15/17 15:57 1 MG Hydromorphone HCl (Dilaudid Inj) 0.5 mg Q5M PRN IV 01/15/17 14:15 01/15/17 19:15 Ondansetron HCl (Zofran Inj) 4 mg ONE PRN IV 01/15/17 14:15 01/15/17 19:15 Ephedrine Sulfate (EpHEDrine SULFATE INJ) 5 mg Q5M PRN IV 01/15/17 14:15 01/15/17 19:15 Atropine Sulfate (Atropine Sulfate 0.1MG/Ml Inj) 0.5 mg Q1M PRN IV 01/15/17 14:15 01/15/17 19:15 Phenylephrine HCl (Freddy-Synephrine 500MCG/5ML Syr) 100 mcg Q5M PRN IV 01/15/17 14:15 01/15/17 19:15 Miscellaneous (Iv Fluids Completed) 1 ea PRN PRN N/A 01/15/17 14:15 01/15/18 14:14 Miscellaneous (Fentanyl Patch Remove & Waste) 1 ea Q3D@1744 N/A 01/18/17 17:44 02/17/17 17:43 Miscellaneous Information (Check Fentanyl Patch Placement) 1 ea QS N/A 01/16/17 00:00 02/15/17 00:00 Insulin Aspart (novoLOG ASPART) SLIDING SCALE If C... ACHS SC 01/15/17 21:00 02/14/17 20:59 Glucose (Glucose 40% Gel) 15-30 GRAMS 15 GRAMS... UD PRN PO 01/15/17 19:00 02/14/17 18:59 Glucose (Glucose Chew Tab) 4-8 Tablets 4 Tabl... UD PRN PO 01/15/17 19:00 02/14/17 18:59 Dextrose (Dextrose 50% 50ML Syringe) 25-50ML OF 50% DW IV FOR... UD PRN IV 01/15/17 19:00 02/14/17 18:59 Glucagon (Glucagon Inj) 1 mg UD PRN SQ 01/15/17 19:00 02/14/17 18:59 Review of Systems Ten systems reviewed and negative except as noted in HPI. Physical Exam Date Time Temp Pulse Resp B/P (MAP) Pulse Ox O2 Delivery O2 Flow Rate FiO2 01/15/17 18:45 36.4 89 17 109/69 (82) 93 Nasal Cannula 3.0 01/15/17 17:45 36.6 85 18 110/72 (85) 94 Nasal Cannula 3.0 01/15/17 17:16 36.5 93 16 118/71 (87) 95 Nasal Cannula 01/15/17 16:45 98 Nasal Cannula 3.0 01/15/17 16:45 98 Nasal Cannula 3.0 01/15/17 16:30 16 119/69 96 Nasal Cannula 4 01/15/17 16:15 36.2 95 16 123/64 96 Nasal Cannula 4 01/15/17 16:05 97 18 123/63 96 Nasal Cannula 4 01/15/17 15:55 100 19 130/67 95 Nasal Cannula 4 01/15/17 15:45 105 13 124/66 96 Oxymask 15 01/15/17 15:35 104 10 112/70 95 Oxymask 15 01/15/17 15:25 108 14 108/73 92 Oxymask 15 01/15/17 15:17 36.7 108 12 115/77 92 Oxymask 10 01/15/17 09:47 141/71 95 Room Air General Appearance: WD/WN, + obese Head: normocephalic, atraumatic Eyes: normal inspection, PERRL, sclerae normal ENT: hearing grossly normal, pharynx normal Neck: supple, trachea midline Respiratory/Chest: lungs clear, normal breath sounds, no respiratory distress, no accessory muscle use, + pertinent finding (no wheezing) Cardiovascular: regular rate, rhythm, no murmur Abdomen/GI: normal bowel sounds, non tender, soft Extremities/Musculoskelatal: + pertinent finding (right foot and lower leg wrapped s/p surgery with ice pack in place. LLE- no calf tenderness, SCD in place) Neurologic/Psych: alert, normal mood/affect, oriented x 3 Skin: normal color, warm/dry Laboratory Results Last 24 Hours Test 01/15/17 09:14 01/15/17 15:26 01/15/17 17:01 Bedside Glucose 197 mg/dl 216 mg/dl 260 mg/dl Assessment & Plan S/P RIGHT FOOT SURGERY POD #[address] Roberson Acute pain control ordered by ortho (Percocet, IV Dilaudid PRN) Wound care, activity per ortho Monitor daily H/H for sign of acute blood loss anemia CHRONIC PAIN Changed her chronic fentanyl patch to the correct dose (12.5 mcg/hour) Follows with [facility] pharmacist Cici Wang [facility] for pain management- her note states "Recommend continuing fentanyl 12.5 mcg/h from now until after post-surgical phase. Spoke to Dr. Roberson's office. - Should get more percocet than normal chronic pain regimen for post op pain - to be discharged near her prev dose and will reassess at next appt" Continue Lyrica DM TYPE 2 Hold glimepiride Novolog sliding scale HX ORTHOSTATIC HYPOTENSION Continue midodrine ASTHMA/ COPD Not in exacerbation Continue home inhaler DEPRESSION/ ANXIETY Continue paroxetine, amitriptyline, Klonopin RLS Continue temazepam DVT PROPHYLAXIS Per ortho Patient seen in collaboration with Dr. Roque. nina see her addendum. ADDENDUM: I have seen and examined the patient and agree with the assessment and plan as above with the only addition that she will be getting Lantus overnight and an extra POC fingerstick gluc check overnight as her blood sugar went up over 300. DO Jude
[2017-01-15] MEDS: ROPINIROLE HCL 1 MG TAB PO SCH (20:54)
[2017-01-15] MEDS: AMITRIPTYLINE HCL 25 MG TAB PO SCH (20:57)
[2017-01-15] MEDS: CHOLECALCIFEROL 1000 INTER.UNIT TAB PO SCH (20:57)
[2017-01-15] MEDS: MIDODRINE 10 MG TAB PO SCH (20:58)
[2017-01-15] MEDS: SENNA 8.6 MG TAB PO SCH (20:59)
[2017-01-15] MEDS: DOCUSATE SODIUM 100 MG CAP PO SCH (21:00)
[2017-01-15] MEDS: PREGABALIN 75 MG CAP PO SCH (21:05)
[2017-01-15] MEDS: INSULIN ASPART 100 UNITS/ML 3 ML PEN SC SCH (21:25)
[2017-01-15] MEDS ORDERED: INSULIN GLARGINE SOLOSTAR 100 UNITS/ML 3 ML PEN SC ONE (21:50)
[2017-01-15] MEDS: CHECK FENTANYL PATCH PLACEMENT SCH (23:56)
[2017-01-16] MEDS ORDERED: CHECK FENTANYL PATCH PLACEMENT SCH
[2017-01-16] MEDS ORDERED: INSULIN ASPART 100 UNITS/ML 3 ML PEN SC ONE (01:00)
[2017-01-16] MEDS: OXYCODONE/ACETAMINOPHEN 10/325MG TAB PO PRN ×5 (01:29→18:31)
[2017-01-16] MEDS: CEFAZOLIN IV 2,000 MG in DEXTROSE 5% 50ML 50 ML IV SCH (03:34)
[2017-01-16] MEDS: POTASSIUM CHLORIDE INJ 10 MEQ in SODIUM CHLORIDE 0.9% 1000ML 1,000 ML IV SCH ×2 (03:34→14:06)
[2017-01-16 03:51] VITALS: BP 109/69; PULSE 73; TEMP 36.4; O2SAT 97
[2017-01-16] MEDS: LEVOTHYROXINE 25 MCG TAB PO SCH (05:30)
[2017-01-16 06:22] LABS: HEMATOCRIT 36.9 % (37-47); MEAN CELL VOLUME 92.7 fL (80-100); MEAN CORPUSCULAR HEMOGLOBIN 31.7 pg (25-34); MEAN CORPUSCULAR HGB CONC 34.1 g/dl (32-36); MEAN PLATELET VOLUME 10.1 fL (7.4-10.4); PLATELET COUNT 241 K/uL (130-400); RED BLOOD COUNT 3.98 M/uL (4.2-5.4); WHITE BLOOD COUNT 10.78 K/uL (4.8-10.8)
[2017-01-16 06:48] LABS: BUN/CREATININE RATIO 22.7 (10-20); CALCIUM 8.9 mg/dl (8.5-10.1); CREATININE 0.81 mg/dl (0.60-1.20); POTASSIUM 4.2 mmol/L (3.5-5.1)
[2017-01-16] MEDS: ONDANSETRON 4 MG TAB PO PRN (06:52)
[2017-01-16 07:44] VITALS: BP 112/69; PULSE 66; TEMP 36.5; O2SAT 100
--- NOTE | 2017-01-16 07:56 | Orthopedic Progress Note ---
Orthopedic Progress Note Date of Service Jan 16, 2017. Subjective Post OP Day: 1 Reports: complaints (Moderate/severe pain(pt with chronic pain issues)) Objective N/V intact, dressing C/D/I Date Time Temp Pulse Resp B/P (MAP) Pulse Ox O2 Delivery O2 Flow Rate FiO2 01/16/17 07:44 36.5 66 20 112/69 (83) 100 Nasal Cannula 2.0 01/16/17 03:51 36.4 73 16 109/69 (82) 97 Nasal Cannula 2.0 01/15/17 23:47 36.5 85 16 111/69 (83) 98 Nasal Cannula 2.0 01/15/17 20:00 95 Nasal Cannula 3.0 01/15/17 18:45 36.4 89 17 109/69 (82) 93 Nasal Cannula 3.0 01/15/17 17:45 36.6 85 18 110/72 (85) 94 Nasal Cannula 3.0 01/15/17 17:16 36.5 93 16 118/71 (87) 95 Nasal Cannula 01/15/17 16:45 98 Nasal Cannula 3.0 01/15/17 16:45 98 Nasal Cannula 3.0 01/15/17 16:30 16 119/69 96 Nasal Cannula 4 01/15/17 16:15 36.2 95 16 123/64 96 Nasal Cannula 4 01/15/17 16:05 97 18 123/63 96 Nasal Cannula 4 01/15/17 15:55 100 19 130/67 95 Nasal Cannula 4 01/15/17 15:45 105 13 124/66 96 Oxymask 15 01/15/17 15:35 104 10 112/70 95 Oxymask 15 01/15/17 15:25 108 14 108/73 92 Oxymask 15 01/15/17 15:17 36.7 108 12 115/77 92 Oxymask 10 01/15/17 09:47 141/71 95 Room Air Laboratory Results 24 Hours: Test 01/16/17 05:31 Hematocrit 36.9 % Hemoglobin 12.6 g/dL Assessment & Plan Assessment: 66 yo female stable POD #1 s/p right foot Devlin Hallux valgus correction, Jef osteotomy great toe, 2nd/3rd Christofer osteotomy, 2nd DuVries, and 5th Chev[employer] bunionnette correction Plan: 1. Med management 2. DVT prophylaxis- SCDs 3. PT/OT 4. D/C planning- pt interested in [facility] d/c
[2017-01-16] MEDS: DICYCLOMINE HCL 10 MG CAP PO SCH ×3 (08:26→20:57)
[2017-01-16] MEDS: LORATADINE 10 MG TAB PO SCH (08:26)
[2017-01-16] MEDS: CHECK FENTANYL PATCH PLACEMENT SCH ×2 (08:26→15:58)
[2017-01-16] MEDS: CLONAZEPAM 1 MG TAB PO SCH ×3 (08:27→20:57)
[2017-01-16] MEDS: MAGNESIUM OXIDE 400 MG TAB PO SCH (08:27)
[2017-01-16] MEDS: PREGABALIN 75 MG CAP PO SCH ×2 (08:27→20:57)
[2017-01-16] MEDS: FERROUS SULFATE 325 MG TAB PO SCH ×2 (08:27→18:13)
[2017-01-16] MEDS: FENOFIBRATE 48 MG TAB PO SCH (08:28)
[2017-01-16] MEDS: MULTIVITAMIN TAB PO SCH (08:28)
[2017-01-16] MEDS: PAROXETINE 30 MG TAB PO SCH (08:28)
[2017-01-16] MEDS: CHOLECALCIFEROL 1000 INTER.UNIT TAB PO SCH ×2 (08:28→20:56)
[2017-01-16] MEDS: MIDODRINE 10 MG TAB PO SCH ×2 (08:29→20:57)
[2017-01-16] MEDS: DOCUSATE SODIUM 100 MG CAP PO SCH ×2 (08:29→20:57)
[2017-01-16] MEDS: CYCLOBENZAPRINE HCL 10 MG TAB PO SCH ×3 (08:29→20:57)
[2017-01-16] MEDS: POTASSIUM CHLORIDE 20 MEQ TABCR PO SCH (08:30)
[2017-01-16] MEDS: INSULIN ASPART 100 UNITS/ML 3 ML PEN SC SCH ×4 (08:36→21:03)
[2017-01-16] MEDS: INSULIN GLARGINE SOLOSTAR 100 UNITS/ML 3 ML PEN SC SCH ×2 (08:38→21:04)
[2017-01-16 11:10] VITALS: BP 114/73; PULSE 89; TEMP 36.5; O2SAT 97
[2017-01-16 15:00] VITALS: BP 115/70; PULSE 81; TEMP 36.5; O2SAT 97
[2017-01-16] MEDS ORDERED: NURSING VERBAL MED ORDER ONE (15:15)
[2017-01-16] MEDS: ONDANSETRON INJ 2 MG/ML 2 ML VIAL IV PRN ×2 (15:49→21:59)
[2017-01-16] MEDS: HYDROmorphone INJ 1 MG/ML SYR IV PRN ×2 (15:52→21:59)
--- NOTE | 2017-01-16 16:29 | Progress Note ---
Internal Med Progress Note Date of Service: Jan 16, 2017. Provider Documentation: SUBJECTIVE: The patient was seen and examined Complains of pain at the surgery site Denies any other symptoms OBJECTIVE: Vital Signs-as noted below Exam: General-no distress at rest Eyes-normal ENT-normal Neck-supple Lungs-Clear to auscultate bilaterally Heart-Regular,no murmur Abdomen-Benign,no masses,bowel sound present Extremities-Trace edema bilaterally Neuro-AAOx3 Lab data as noted below. ASSESSMENT & PLAN: S/P RIGHT FOOT SURGERY POD #1 s/p right foot Devlin Hallux valgus correction-see Ortho note for full extent of Sx Acute pain control ordered by ortho (Percocet, IV Dilaudid PRN) Wound care, activity per ortho Hb and other Blood counts are unremarkable CHRONIC PAIN Changed her chronic fentanyl patch to the correct dose (12.5 mcg/hour) Follows with [facility] pharmacist Cici Wang [facility] for pain management- her note states "Recommend continuing fentanyl 12.5 mcg/h from now until after post-surgical phase. Spoke to Dr. Roberson's office. - Should get more percocet than normal chronic pain regimen for post op pain - to be discharged near her prev dose and will reassess at next appt" Continue Lyrica Pain is not yet controlled Reassured DM TYPE 2 Hold glimepiride NovoLog sliding scale Blood sugar is maintained HX ORTHOSTATIC HYPOTENSION Continue midodrine No acute issue ASTHMA/ COPD Not in exacerbation Continue home inhaler DEPRESSION/ ANXIETY Continue paroxetine, amitriptyline, Klonopin RLS Continue temazepam DVT PROPHYLAXIS Per ortho Medically sable Vital Signs: Date Time Temp Pulse Resp B/P (MAP) Pulse Ox O2 Delivery O2 Flow Rate FiO2 01/16/17 16:16 Room Air 01/16/17 15:00 36.5 81 16 115/70 (85) 97 Room Air 01/16/17 11:10 36.5 89 19 114/73 (87) 97 Room Air 01/16/17 08:10 Room Air 01/16/17 07:44 36.5 66 20 112/69 (83) 100 Nasal Cannula 2.0 01/16/17 03:51 36.4 73 16 109/69 (82) 97 Nasal Cannula 2.0 01/15/17 23:47 36.5 85 16 111/69 (83) 98 Nasal Cannula 2.0 01/15/17 20:00 95 Nasal Cannula 3.0 01/15/17 18:45 36.4 89 17 109/69 (82) 93 Nasal Cannula 3.0 01/15/17 17:45 36.6 85 18 110/72 (85) 94 Nasal Cannula 3.0 01/15/17 17:16 36.5 93 16 118/71 (87) 95 Nasal Cannula 01/15/17 16:45 98 Nasal Cannula 3.0 01/15/17 16:45 98 Nasal Cannula 3.0 01/15/17 16:30 16 119/69 96 Nasal Cannula 4 Lab Results: Results Past 24 Hours Test 01/15/17 17:01 01/15/17 20:43 01/16/17 01:01 01/16/17 05:31 Range/Units Bedside Glucose 260 346 175 70-90 mg/dl White Blood Count 10.78 4.8-10.8 K/uL Red Blood Count 3.98 4.2-5.4 M/uL Hemoglobin 12.6 12.0-16.0 g/dL Hematocrit 36.9 37-47 % Mean Corpuscular Volume 92.7 80-100 fL Mean Corpuscular Hemoglobin 31.7 25-34 pg Mean Corpuscular Hemoglobin Concent 34.1 32-36 g/dl RDW Standard Deviation 41.5 36.4-46.3 fL RDW Coefficient of Variation 12.2 11.5-14.5 % Platelet Count 241 130-400 K/uL Mean Platelet Volume 10.1 7.4-10.4 fL Sodium Level 140 136-145 mmol/L Potassium Level 4.2 3.5-5.1 mmol/L Chloride Level 106 98-107 mmol/L Carbon Dioxide Level 28 21-32 mmol/L Anion Gap 6.0 3-11 mmol/L Blood Urea Nitrogen 18 7-18 mg/dl Creatinine 0.81 0.60-1.20 mg/dl Est Creatinine Clear Calc Drug Dose 70.4 ml/min Estimated GFR () 87.1 Estimated GFR (Non- 75.2 BUN/Creatinine Ratio 22.7 10-20 Random Glucose 167 70-99 mg/dl Calcium Level 8.9 8.5-10.1 mg/dl Hepatitis C Antibody Screen NEG NEG Test 01/16/17 07:52 01/16/17 12:00 Range/Units Bedside Glucose 162 99 70-90 mg/dl
[2017-01-16] MEDS: ROPINIROLE HCL 1 MG TAB PO SCH (20:56)
[2017-01-16] MEDS: SENNA 8.6 MG TAB PO SCH (20:57)
[2017-01-16] MEDS: AMITRIPTYLINE HCL 25 MG TAB PO SCH (20:57)
[2017-01-16] MEDS: TEMAZEPAM 15 MG CAP PO PRN (21:59)
[2017-01-16 23:24] VITALS: BP 120/64; PULSE 83; TEMP 36.5; O2SAT 94
[2017-01-17] MEDS: CHECK FENTANYL PATCH PLACEMENT SCH ×3 (00:01→16:13)
[2017-01-17] MEDS: LEVOTHYROXINE 25 MCG TAB PO SCH (05:31)
[2017-01-17] MEDS: ONDANSETRON INJ 2 MG/ML 2 ML VIAL IV PRN (05:57)
[2017-01-17] MEDS: OXYCODONE/ACETAMINOPHEN 10/325MG TAB PO PRN ×4 (05:58→22:05)
[2017-01-17 07:18] VITALS: BP 138/78; PULSE 77; TEMP 36.4; O2SAT 94
[2017-01-17 07:29] LABS: HEMATOCRIT 39.8 % (37-47); MEAN CELL VOLUME 94.3 fL (80-100); MEAN CORPUSCULAR HEMOGLOBIN 31.5 pg (25-34); MEAN CORPUSCULAR HGB CONC 33.4 g/dl (32-36); MEAN PLATELET VOLUME 9.9 fL (7.4-10.4); PLATELET COUNT 198 K/uL (130-400); RED BLOOD COUNT 4.22 M/uL (4.2-5.4); WHITE BLOOD COUNT 6.57 K/uL (4.8-10.8)
[2017-01-17 07:52] LABS: BUN/CREATININE RATIO 18.3 (10-20); CALCIUM 9.4 mg/dl (8.5-10.1); CREATININE 0.7 mg/dl (0.60-1.20)
--- NOTE | 2017-01-17 08:13 | Orthopedic Progress Note ---
Orthopedic Progress Note Date of Service Jan 17, 2017. Subjective Post OP Day: 2 Reports: feeling well Objective calves soft nontender, N/V intact, dressing C/D/I, toes mobile Date Time Temp Pulse Resp B/P (MAP) Pulse Ox O2 Delivery O2 Flow Rate FiO2 01/17/17 07:18 36.4 77 16 138/78 (98) 94 Room Air 01/17/17 06:22 Room Air 01/16/17 23:40 Nasal Cannula 2.0 01/16/17 23:24 36.5 83 18 120/64 (82) 94 Nasal Cannula 2.0 01/16/17 16:16 Room Air 01/16/17 15:00 36.5 81 16 115/70 (85) 97 Room Air 01/16/17 11:10 36.5 89 19 114/73 (87) 97 Room Air Laboratory Results 24 Hours: Test 01/17/17 07:00 Hematocrit 39.8 % Hemoglobin 13.3 g/dL Assessment & Plan Assessment: 66 yo female stable POD #2 s/p right foot Devlin Hallux valgus correction, Jef osteotomy great toe, 2nd/3rd Christofer osteotomy, 2nd DuVries, and 5th [employer] bunionnette correction Plan: 1. Med management 2. DVT prophylaxis- SCDs 3. PT/OT 4. D/C planning- pt interested in SNF upon d/c, d/c tomorrow if placement
[2017-01-17] MEDS: INSULIN ASPART 100 UNITS/ML 3 ML PEN SC SCH ×4 (08:57→21:07)
[2017-01-17] MEDS: PREGABALIN 75 MG CAP PO SCH ×2 (08:58→21:01)
[2017-01-17] MEDS: DOCUSATE SODIUM 100 MG CAP PO SCH ×2 (08:58→21:00)
[2017-01-17] MEDS: INSULIN GLARGINE SOLOSTAR 100 UNITS/ML 3 ML PEN SC SCH ×2 (08:58→21:07)
[2017-01-17] MEDS: LORATADINE 10 MG TAB PO SCH (08:58)
[2017-01-17] MEDS: FERROUS SULFATE 325 MG TAB PO SCH ×2 (08:58→18:22)
[2017-01-17] MEDS: PAROXETINE 30 MG TAB PO SCH (08:58)
[2017-01-17] MEDS: CLONAZEPAM 1 MG TAB PO SCH ×3 (08:58→21:01)
[2017-01-17] MEDS: CHOLECALCIFEROL 1000 INTER.UNIT TAB PO SCH ×2 (08:59→21:00)
[2017-01-17] MEDS: POTASSIUM CHLORIDE 20 MEQ TABCR PO SCH (08:59)
[2017-01-17] MEDS: FENOFIBRATE 48 MG TAB PO SCH (08:59)
[2017-01-17] MEDS: MIDODRINE 10 MG TAB PO SCH ×2 (08:59→21:00)
[2017-01-17] MEDS: MULTIVITAMIN TAB PO SCH (08:59)
[2017-01-17] MEDS: MAGNESIUM OXIDE 400 MG TAB PO SCH (09:00)
[2017-01-17] MEDS: DICYCLOMINE HCL 10 MG CAP PO SCH ×3 (09:00→21:01)
[2017-01-17] MEDS: CYCLOBENZAPRINE HCL 10 MG TAB PO SCH ×3 (11:17→21:00)
[2017-01-17] MEDS: ONDANSETRON 4 MG TAB PO PRN ×2 (13:21→17:01)
[2017-01-17 15:10] VITALS: BP 146/79; PULSE 94; TEMP 36.5; O2SAT 98
--- NOTE | 2017-01-17 15:30 | Progress Note ---
Internal Med Progress Note Date of Service: Jan 17, 2017. Provider Documentation: SUBJECTIVE: The patient was seen and examined Complains of pain at the surgery site Denies any other symptoms Remains stable OBJECTIVE: Vital Signs-as noted below Exam: General-no distress at rest Eyes-normal ENT-normal Neck-supple Lungs-Clear to auscultate bilaterally Heart-Regular,no murmur Abdomen-Benign,no masses,bowel sound present Extremities-Trace edema bilaterally Neuro-AAOx3 Lab data as noted below. ASSESSMENT & PLAN: S/P RIGHT FOOT SURGERY POD # 2 s/p right foot Devlin Hallux valgus correction-see Ortho note for full extent of Sx Acute pain control ordered by ortho (Percocet, IV Dilaudid PRN) Wound care, activity per ortho Hb and other Blood counts are unremarkable Pain is reasonably controlled Clinically stable CHRONIC PAIN Changed her chronic fentanyl patch to the correct dose (12.5 mcg/hour) Follows with [facility] pharmacist Cici Wang [facility] for pain management- her note states "Recommend continuing fentanyl 12.5 mcg/h from now until after post-surgical phase. Spoke to Dr. Roberson's office. - Should get more percocet than normal chronic pain regimen for post op pain - to be discharged near her prev dose and will reassess at next appt" Continue Lyrica Pain is reasonably controlled DM TYPE 2 Hold glimepiride NovoLog sliding scale Blood sugar is maintained HX ORTHOSTATIC HYPOTENSION Continue midodrine No acute issue Blood pressure is maintained ASTHMA/ COPD Not in exacerbation Continue home inhaler DEPRESSION/ ANXIETY Continue paroxetine, amitriptyline, Klonopin RLS Continue temazepam DVT PROPHYLAXIS Per ortho Medically sable Vital Signs: Date Time Temp Pulse Resp B/P (MAP) Pulse Ox O2 Delivery O2 Flow Rate FiO2 01/17/17 15:10 36.5 94 18 146/79 (101) 98 Room Air 01/17/17 08:15 Room Air 01/17/17 07:18 36.4 77 16 138/78 (98) 94 Room Air 01/17/17 06:22 Room Air 01/16/17 23:40 Nasal Cannula 2.0 01/16/17 23:24 36.5 83 18 120/64 (82) 94 Nasal Cannula 2.0 01/16/17 16:16 Room Air Lab Results: Results Past 24 Hours Test 01/16/17 17:13 01/16/17 20:54 01/17/17 07:00 01/17/17 08:15 Range/Units Bedside Glucose 86 209 110 70-90 mg/dl White Blood Count 6.57 4.8-10.8 K/uL Red Blood Count 4.22 4.2-5.4 M/uL Hemoglobin 13.3 12.0-16.0 g/dL Hematocrit 39.8 37-47 % Mean Corpuscular Volume 94.3 80-100 fL Mean Corpuscular Hemoglobin 31.5 25-34 pg Mean Corpuscular Hemoglobin Concent 33.4 32-36 g/dl RDW Standard Deviation 43.3 36.4-46.3 fL RDW Coefficient of Variation 12.5 11.5-14.5 % Platelet Count 198 130-400 K/uL Mean Platelet Volume 9.9 7.4-10.4 fL Sodium Level 142 136-145 mmol/L Potassium Level 4.0 3.5-5.1 mmol/L Chloride Level 107 98-107 mmol/L Carbon Dioxide Level 27 21-32 mmol/L Anion Gap 8.0 3-11 mmol/L Blood Urea Nitrogen 13 7-18 mg/dl Creatinine 0.70 0.60-1.20 mg/dl Est Creatinine Clear Calc Drug Dose 81.5 ml/min Estimated GFR () 103.9 Estimated GFR (Non- 89.7 BUN/Creatinine Ratio 18.3 10-20 Random Glucose 125 70-99 mg/dl Calcium Level 9.4 8.5-10.1 mg/dl Test 01/17/17 11:59 Range/Units Bedside Glucose 75 70-90 mg/dl
[2017-01-17] MEDS: AMITRIPTYLINE HCL 25 MG TAB PO SCH (21:00)
[2017-01-17] MEDS: ROPINIROLE HCL 1 MG TAB PO SCH (21:01)
[2017-01-17] MEDS: SENNA 8.6 MG TAB PO SCH (21:01)
[2017-01-17] MEDS: TEMAZEPAM 15 MG CAP PO PRN (22:04)
[2017-01-17 23:06] VITALS: BP 123/81; PULSE 91; TEMP 36.9; O2SAT 89
[2017-01-17 23:07] VITALS: O2SAT 93
[2017-01-18] MEDS: LEVOTHYROXINE 25 MCG TAB PO SCH (06:10)
[2017-01-18] MEDS: OXYCODONE/ACETAMINOPHEN 10/325MG TAB PO PRN ×2 (06:24→14:33)
[2017-01-18 06:33] VITALS: BP 164/81; PULSE 86; TEMP 36.4; O2SAT 95
--- NOTE | 2017-01-18 07:33 | Anesthesiology Progress Note ---
Anesthesia Post Op Note Date & Time Jan 18, 2017 at 07:32 Vital Signs Pain Intensity: 5.0 Vital Signs Past 12 Hours Date Time Temp Pulse Resp B/P (MAP) Pulse Ox O2 Delivery O2 Flow Rate FiO2 01/18/17 07:15 Room Air 01/18/17 06:33 36.4 86 16 164/81 (108) 95 Room Air 01/18/17 00:15 Nasal Cannula 2.0 01/17/17 23:07 93 Nasal Cannula 2.0 01/17/17 23:06 36.9 91 16 123/81 (95) 89 Room Air Notes Mental Status: alert / awake / arousable, participated in evaluation Pt Amnestic to Procedure: Yes Nausea / Vomiting: adequately controlled Pain: improving with treatment Airway Patency, RR, SpO2: stable & adequate BP & HR: stable & adequate Hydration State: stable & adequate Anesthetic Complications: no major complications apparent
[2017-01-18] MEDS: INSULIN GLARGINE SOLOSTAR 100 UNITS/ML 3 ML PEN SC SCH ×2 (08:09→21:39)
[2017-01-18] MEDS: CHECK FENTANYL PATCH PLACEMENT SCH ×3 (08:11→16:13)
[2017-01-18] MEDS: PREGABALIN 75 MG CAP PO SCH ×2 (08:13→21:36)
[2017-01-18] MEDS: FENOFIBRATE 48 MG TAB PO SCH (08:13)
[2017-01-18] MEDS: MULTIVITAMIN TAB PO SCH (08:13)
[2017-01-18] MEDS: FERROUS SULFATE 325 MG TAB PO SCH ×2 (08:13→17:45)
[2017-01-18] MEDS: MAGNESIUM OXIDE 400 MG TAB PO SCH (08:14)
[2017-01-18] MEDS: MIDODRINE 10 MG TAB PO SCH ×2 (08:14→21:37)
[2017-01-18] MEDS: DICYCLOMINE HCL 10 MG CAP PO SCH ×3 (08:14→21:36)
[2017-01-18] MEDS: PAROXETINE 30 MG TAB PO SCH (08:14)
[2017-01-18] MEDS: CHOLECALCIFEROL 1000 INTER.UNIT TAB PO SCH ×2 (08:14→21:38)
[2017-01-18] MEDS: DOCUSATE SODIUM 100 MG CAP PO SCH ×2 (08:14→21:36)
[2017-01-18] MEDS: POTASSIUM CHLORIDE 20 MEQ TABCR PO SCH (08:15)
[2017-01-18] MEDS: CLONAZEPAM 1 MG TAB PO SCH ×3 (08:15→21:36)
[2017-01-18] MEDS: CYCLOBENZAPRINE HCL 10 MG TAB PO SCH ×3 (08:15→21:36)
[2017-01-18] MEDS: LORATADINE 10 MG TAB PO SCH (08:15)
[2017-01-18 08:16] LABS: MEAN CELL VOLUME 93.9 fL (80-100); MEAN CORPUSCULAR HEMOGLOBIN 31.9 pg (25-34); PLATELET COUNT 236 K/uL (130-400); RED BLOOD COUNT 4.26 M/uL (4.2-5.4); WHITE BLOOD COUNT 6.71 K/uL (4.8-10.8)
[2017-01-18] MEDS: INSULIN ASPART 100 UNITS/ML 3 ML PEN SC SCH ×4 (08:18→21:40)
[2017-01-18] MEDS: MAGNESIUM HYDROXIDE SUSP 30 ML UDC PO PRN ×2 (10:27→19:33)
[2017-01-18] MEDS ORDERED: BISACODYL 10 MG SUPP PR ONE (10:30)
[2017-01-18] MEDS ORDERED: MAGNESIUM HYDROXIDE SUSP 30 ML UDC PO ONE (10:30)
--- NOTE | 2017-01-18 14:03 | Orthopedic Progress Note ---
Orthopedic Progress Note Date of Service Jan 18, 2017. Subjective Post OP Day: 3 Reports: feeling well, Denies: chest pain, SOB, nausea / vomiting, light headedness, calf pain Objective calves soft nontender, N/V intact, dressing C/D/I, A&O x3, toes mobile Date Time Temp Pulse Resp B/P (MAP) Pulse Ox O2 Delivery O2 Flow Rate FiO2 01/18/17 07:15 Room Air 01/18/17 06:33 36.4 86 16 164/81 (108) 95 Room Air 01/18/17 00:15 Nasal Cannula 2.0 01/17/17 23:07 93 Nasal Cannula 2.0 01/17/17 23:06 36.9 91 16 123/81 (95) 89 Room Air 01/17/17 15:28 Room Air 01/17/17 15:10 36.5 94 18 146/79 (101) 98 Room Air Laboratory Results 24 Hours: Test 01/18/17 07:39 Hematocrit 40.0 % Hemoglobin 13.6 g/dL Assessment & Plan Assessment: 66 yo female stable POD #3 s/p right foot Devlin Hallux valgus correction, Jef osteotomy great toe, 2nd/3rd Christofer osteotomy, 2nd DuVries, and 5th [employer] bunionnette correction Plan: 1. Med management 2. DVT prophylaxis- SCDs 3. PT/OT 4. D/C planning- PATIENT ACCEPTED AT [facility]. STABLE FOR TRANSFER TODAY IF THEY CAN SET UP TRANSPORTATION. Inhouse Planning Pain Management: Percocet, other (FENTANYL PATCH 12MCG) Discharge Planning Discharge Planning: alf facility
[2017-01-18] MEDS ORDERED: MOMLX PO (14:07)
[2017-01-18] MEDS ORDERED: OXYC-106 PO (14:07)
[2017-01-18] MEDS ORDERED: SNK PO (14:07)
[2017-01-18] MEDS ORDERED: PROM25TA9 PO (14:07)
--- NOTE | 2017-01-18 14:09 | Discharge Instructions ---
Discharge Instructions Date of Service Jan 18, 2017. Admission Reason for Admission: Right Foot Surgery Discharge Discharge Diagnosis / Problem: s/p right foot Devlin Hallux valgus correction, Jef osteotomy great toe, 2nd Discharge Goals Goal(s): Decrease discomfort, Improve function, Increase independence Activity Recommendations Activity Level: Assistance Required Therapies: Physical Therapy, Weight Bearing Status (NW RLE), Occupational Therapy Weightbearing Status: Right non-weightbearing . Additional Information Patient informed of condition: Yes Advance Directives: Yes DNR: No Level of Care: Skilled Communicable Disease: No Prognosis: Stable Instructions / Follow-Up Instructions / Follow-Up ACTIVITY RECOMMENDATIONS: Limitations: No weight bearing to affected limb at all times. SPECIAL CARE INSTRUCTIONS: * Some drainage onto the dressing is normal and is no cause for alarm. * Some swelling is natural especially after walking. * When resting, keep your foot elevated above the level of your heart. * Call [facility] if you notice: -Increased drainage -Fever over 101 degrees F -Severe constant pain BANDAGE: * Leave bandage/cast in place unless otherwise directed. * Keep bandage/cast dry at all times. FOLLOW UP VISIT WITH DR. DURAN If appointment is not already scheduled: Please call [facility] after you get home today to schedule a follow-up appointment for [address] Duran at . Current Hospital Diet Patient's current hospital diet: Diabetes Type 2 Diet Discharge Diet Recommended Diet: Regular Diet Procedures Procedures Performed: Right Foot Devlin Hallux Valgus Correction; Rochelle Osteotomy; 2nd Christofer and 3rd Christofer Osteotomy; 2nd DuVries Arthroplasty; 5th Chevron Bunionette Correction; 2nd toe Plantar Plate Release Pending Studies Studies pending at discharge: no Medical Emergencies . Who to Call and When: Medical Emergencies: If at any time you feel your situation is an emergency, please call 911 immediately. . Non-Emergent Contact Non-Emergency issues call your: Surgeon . . "Provider Documentation" section prepared by Margret Guido. . Core Measure Problem Core Measures: None [place] Drug Monitoring Program Search Results: patient reviewed within database, no issues identified
[2017-01-18] MEDS: ONDANSETRON 4 MG TAB PO PRN (14:32)
[2017-01-18 15:30] VITALS: BP 145/88; PULSE 100; TEMP 36.7; O2SAT 98
[2017-01-18] MEDS ORDERED: FENTANYL PATCH REMOVE & WASTE SCH (17:44)
[2017-01-18] MEDS: FENTANYL 12 MCG/HR TDSY TD SCH (19:31)
[2017-01-18] MEDS: FENTANYL PATCH REMOVE & WASTE SCH (19:31)
[2017-01-18] MEDS: SENNA 8.6 MG TAB PO SCH (21:36)
[2017-01-18] MEDS: ROPINIROLE HCL 1 MG TAB PO SCH (21:36)
[2017-01-18] MEDS: AMITRIPTYLINE HCL 25 MG TAB PO SCH (21:37)
[2017-01-18 23:02] VITALS: O2SAT 86
[2017-01-18 23:04] VITALS: BP 104/62; PULSE 91; TEMP 36.8; O2SAT 93
[2017-01-19] MEDS: ONDANSETRON INJ 2 MG/ML 2 ML VIAL IV PRN (01:33)
[2017-01-19] MEDS: OXYCODONE/ACETAMINOPHEN 10/325MG TAB PO PRN ×3 (01:34→14:26)
[2017-01-19] MEDS: LEVOTHYROXINE 25 MCG TAB PO SCH (05:42)
[2017-01-19 06:09] LABS: MEAN CELL VOLUME 95.7 fL (80-100); MEAN CORPUSCULAR HGB CONC 32.4 g/dl (32-36); PLATELET COUNT 258 K/uL (130-400); RED BLOOD COUNT 3.97 M/uL (4.2-5.4)
--- NOTE | 2017-01-19 08:01 | Orthopedic Progress Note ---
Orthopedic Progress Note Date of Service Jan 19, 2017. Subjective Post OP Day: 4 Reports: feeling well, Denies: chest pain, SOB, nausea / vomiting, light headedness, calf pain Additional Notes: LOOKS MUCH MORE COMFORTABLE TODAY. Objective calves soft nontender, N/V intact, capillary refill less than 2 sec., dressing C /D/I, A&O x3, toes mobile Date Time Temp Pulse Resp B/P (MAP) Pulse Ox O2 Delivery O2 Flow Rate FiO2 01/18/17 23:30 Room Air 01/18/17 23:04 36.8 91 20 104/62 (76) 93 Nasal Cannula 2.0 01/18/17 23:02 86 Room Air 01/18/17 16:15 Room Air 01/18/17 15:30 36.7 100 18 145/88 (107) 98 Room Air Laboratory Results 24 Hours: Test 01/19/17 05:35 Hematocrit 38.0 % Hemoglobin 12.3 g/dL Assessment & Plan Assessment: 66 yo female stable POD #4 s/p right foot Devlin Hallux valgus correction, Jef osteotomy great toe, 2nd/3rd Christofer osteotomy, 2nd DuVries, and 5th Chevron bunionnette correction Plan: 1. Med management 2. DVT prophylaxis- SCDs 3. PT/OT 4. D/C planning- PATIENT ACCEPTED AT [facility]. TRANSPORT TODAY Inhouse Planning Pain Management: Percocet, other (FENTANYL PATCH 12MCG) Discharge Planning Discharge Planning: shelter facility
[2017-01-19 08:13] VITALS: BP 113/75; PULSE 90; TEMP 36.6; O2SAT 98
[2017-01-19] MEDS: CHECK FENTANYL PATCH PLACEMENT SCH ×2 (08:42)
[2017-01-19] MEDS: CYCLOBENZAPRINE HCL 10 MG TAB PO SCH ×2 (08:44→14:21)
[2017-01-19] MEDS: CHOLECALCIFEROL 1000 INTER.UNIT TAB PO SCH (08:44)
[2017-01-19] MEDS: PREGABALIN 75 MG CAP PO SCH (08:45)
[2017-01-19] MEDS: CLONAZEPAM 1 MG TAB PO SCH ×2 (08:45→14:21)
[2017-01-19] MEDS: MIDODRINE 10 MG TAB PO SCH (08:46)
[2017-01-19] MEDS: MULTIVITAMIN TAB PO SCH (08:46)
[2017-01-19] MEDS: POTASSIUM CHLORIDE 20 MEQ TABCR PO SCH (08:46)
[2017-01-19] MEDS: PAROXETINE 30 MG TAB PO SCH (08:46)
[2017-01-19] MEDS: DOCUSATE SODIUM 100 MG CAP PO SCH (08:47)
[2017-01-19] MEDS: MAGNESIUM OXIDE 400 MG TAB PO SCH (08:47)
[2017-01-19] MEDS: FERROUS SULFATE 325 MG TAB PO SCH (08:47)
[2017-01-19] MEDS: FENOFIBRATE 48 MG TAB PO SCH (08:47)
[2017-01-19] MEDS: LORATADINE 10 MG TAB PO SCH (08:47)
[2017-01-19] MEDS: DICYCLOMINE HCL 10 MG CAP PO SCH ×2 (08:48→14:21)
[2017-01-19] MEDS: INSULIN ASPART 100 UNITS/ML 3 ML PEN SC SCH ×2 (08:52→14:21)
[2017-01-19] MEDS: INSULIN GLARGINE SOLOSTAR 100 UNITS/ML 3 ML PEN SC SCH (08:53)
[2017-01-19 10:44] VITALS: BP 113/75; PULSE 90; TEMP 36.6; O2SAT 98
[2017-01-19] MEDS ORDERED: SOD PHOSPHATE/SOD BIPHOSPHATE ENEMA 132 ML BTL PR SCH (12:45)
--- NOTE | 2017-01-19 17:15 | Progress Note ---
Internal Med Progress Note Date of Service: Jan 18, 2017. Provider Documentation: This is a bill for 01/18/17 SUBJECTIVE: The patient was seen and examined Complains of pain at the surgery site Denies any other symptoms Remains stable Bowel not moved OBJECTIVE: Vital Signs-as noted below Exam: General-no distress at rest Eyes-normal ENT-normal Neck-supple Lungs-Clear to auscultate bilaterally Heart-Regular,no murmur Abdomen-Benign,no masses,bowel sound present Extremities-Trace edema bilaterally Neuro-AAOx3 Lab data as noted below. ASSESSMENT & PLAN: S/P RIGHT FOOT SURGERY POD # 3 s/p right foot Devlin Hallux valgus correction-see Ortho note for full extent of Sx Acute pain control ordered by ortho (Percocet, IV Dilaudid PRN) Wound care, activity per ortho Hb and other Blood counts are unremarkable Pain is reasonably controlled now Getting Physical Therapy CHRONIC PAIN Changed her chronic fentanyl patch to the correct dose (12.5 mcg/hour) Follows with [facility] pharmacist Cici Wang [facility] for pain management- her note states "Recommend continuing fentanyl 12.5 mcg/h from now until after post-surgical phase. Spoke to Dr. Roberson's office. - Should get more percocet than normal chronic pain regimen for post op pain - to be discharged near her prev dose and will reassess at next appt" Continue Lyrica DM TYPE 2 Hold glimepiride NovoLog sliding scale Blood sugar is maintained HX ORTHOSTATIC HYPOTENSION Continue current medications NO further issue ASTHMA/ COPD Not in exacerbation Continue home inhaler DEPRESSION/ ANXIETY Continue paroxetine, amitriptyline, Klonopin RLS Continue temazepam DVT PROPHYLAXIS Per ortho Medically sable Vital Signs: Date Time Temp Pulse Resp B/P (MAP) Pulse Ox O2 Delivery O2 Flow Rate FiO2 01/19/17 10:44 36.6 90 17 98 Room Air 01/19/17 08:30 Room Air 01/19/17 08:13 36.6 90 17 113/75 (88) 98 Nasal Cannula 2.0 01/18/17 23:30 Room Air 01/18/17 23:04 36.8 91 20 104/62 (76) 93 Nasal Cannula 2.0 01/18/17 23:02 86 Room Air Lab Results: Results Past 24 Hours Test 01/18/17 20:37 01/19/17 05:35 01/19/17 08:09 01/19/17 12:12 Range/Units Bedside Glucose 229 133 140 70-90 mg/dl White Blood Count 6.50 4.8-10.8 K/uL Red Blood Count 3.97 4.2-5.4 M/uL Hemoglobin 12.3 12.0-16.0 g/dL Hematocrit 38.0 37-47 % Mean Corpuscular Volume 95.7 80-100 fL Mean Corpuscular Hemoglobin 31.0 25-34 pg Mean Corpuscular Hemoglobin Concent 32.4 32-36 g/dl RDW Standard Deviation 42.9 36.4-46.3 fL RDW Coefficient of Variation 12.4 11.5-14.5 % Platelet Count 258 130-400 K/uL Mean Platelet Volume 10.0 7.4-10.4 fL
--- NOTE | 2017-01-21 15:36 | DISCHARGE SUMMARY ---
DISCHARGE DIAGNOSIS: Right foot hallux valgus deformity with hallux interphalangeus, second and third toe metatarsalgia, second hammertoe deformity, and fifth bunionette deformity. SECONDARY DIAGNOSES: Anxiety, chronic obstructive pulmonary disease, hypothyroidism, hyperlipidemia, mitral valve prolapse, obesity. CONSULTS: Dr. Roque/Christie Gutierrez PA-C. COMPLICATIONS: None. PROCEDURES: 1. Right Devlin hallux valgus correction with distal soft tissue. 2. Right Kaycee osteotomy of the great toe. 3. Second Christofer osteotomy. 4. Third Christofer osteotomy. 5. Second DuVries arthroplasty. 6. Fifth Chevron bunionette correction. 7. Second plantar plate release by Dr. Roberson on 01/15/2017. HOSPITAL SUMMARY: The patient was admitted on the above date and had the above known surgery performed which she tolerated well. Postoperatively, [facility] Medical service was consulted for postoperative medical management and continued to follow the patient during her stay. She was having complaints of moderate to severe pain on her first postoperative day and she also had a history of chronic pain issues. Neurovascular was intact. Dressings clean, dry and intact and vital signs were stable. Hemoglobin was 12.6 and her pain medications were adjusted accordingly and she was started on physical therapy but it was felt that was going to need a fdc facility post-discharge which arrangements were being made by case management. Over the next several days, the patient continued to remain medically stable as well as orthopedically stable and by January 19, she was feeling well. Her pain was controlled. Calves were soft and nontender, neurovascularly intact. Dressings were clean, dry and intact. Toes were mobile. Vital signs were stable. She is afebrile. She was remaining medically stable as well as orthopedically stable and it was felt she could be transferred to [facility] for further physical therapy and care. For further review, please see chart. LABORATORY AND X-RAY DATA: As per chart. DISCHARGE INSTRUCTIONS: The patient was discharged to [facility] on 01/19/2017. ACTIVITY: Nonweightbearing right lower extremity. The patient to have PT and OT. Follow activity recommendations and special care instructions as noted and follow up with Dr. Roberson in 2 weeks. The patient to call for appointment if one has not been made for you. DISCHARGE MEDICATIONS: Milk of magnesia 30 mL p.o. hours p.r.n., Phenergan 25 mg p.o. q. 6 hours p.r.n., senna 17.2 mg p.o. at bedtime. Resume home meds as listed including Percocet 10/325 one tab p.o. q. 8 hours. Stop taking Zofran 4 mg p.o. p.r.n.
== END 2017-01-19 14:45 | DRG 505 ==
LOC: C.ACU 08:44 → UNDOADMOB 09:45 → C.3E 09:45 → ENRESERV 15:47 → EDBEDREQ 15:55 → OBSVTOIN 01-16 10:43
PROVIDERS: ADMIT Orthopaedic Surgery Sports Medicine; ATTEND Orthopaedic Surgery Sports Medicine
PROC: 0SNM0ZZ Release Right Metatarsal-Phalangeal Joint, Open Approach (ICD-10-PCS; principal; 2017-01-15 11:40)
PROC: 0QBN0ZZ Excision of Right Metatarsal, Open Approach (ICD-10-PCS; principal; 2017-01-15 11:40)
PROC: 0QSN04Z Reposition Right Metatarsal with Internal Fixation Device, Open Approach (ICD-10-PCS; principal; 2017-01-15 11:40)
PROC: 0SQP0ZZ Repair Right Toe Phalangeal Joint, Open Approach (ICD-10-PCS; principal; 2017-01-15 11:40)
DX: M20.11 Hallux valgus (acquired), right foot (principal); M21.611 Bunion of right foot; M21.621 Bunionette of right foot; M20.41 Other hammer toe(s) (acquired), right foot; M77.41 Metatarsalgia, right foot; E11.65 Type 2 diabetes mellitus with hyperglycemia; J44.9 Chronic obstructive pulmonary disease, unspecified; I95.1 Orthostatic hypotension; E03.9 Hypothyroidism, unspecified; E78.5 Hyperlipidemia, unspecified; I34.1 Nonrheumatic mitral (valve) prolapse; M19.90 Unspecified osteoarthritis, unspecified site; G89.29 Other chronic pain; G43.909 Migraine, unspecified, not intractable, without status migrainosus; M79.7 Fibromyalgia; F41.9 Anxiety disorder, unspecified; F32.9 Major depressive disorder, single episode, unspecified; E66.9 Obesity, unspecified; Z68.36 Body mass index [BMI] 36.0-36.9, adult; Z96.651 Presence of right artificial knee joint; Z79.51 Long term (current) use of inhaled steroids; Z79.84 Long term (current) use of oral hypoglycemic drugs; Z79.891 Long term (current) use of opiate analgesic; Z79.899 Other long term (current) drug therapy